=== PATIENT | female | born 1940 | race Caucasian/White ===

== ENCOUNTER 2018-05-13 07:56 | Outpatient (CLI) | payer MEDICARE ==
[~2018-05-13] VITALS: Ht 162.6 cm; Wt 129.1 kg
--- NOTE | ~2018-05-13 | OP ---
PATIENT NAME: EDILBERTO TROTTER MEDICAL RECORD: [id number] :40 LOCATION:D.CAT ADMISSION DATE: SURGEON: MANJINDER CARRION MD DATE OF OPERATION: 05/13/2018 PROCEDURES: 1. PTCA stent LAD diagonal. 2. Left heart catheterization. 3. Selective coronary angiography. 4. Left ventriculogram. INDICATION: Chest pain compatible with angina and coronary artery disease. PROCEDURE PERFORMED: After informed consent was obtained and after detailed description of risks and benefits as well as alternative therapies, the patient elected to proceed with angiogram and angioplasty. The right femoral area was prepped and draped in normal sterile fashion. Right femoral artery was cannulated via modified Seldinger technique with placement of 6-Burkinan sheath. All catheters exchanged through this sheath. FINDINGS: The left ventriculogram was performed in standard 30-degree GUILLEN view, reveals good cardiac wall motion throughout all segments. Overall ejection fraction estimated 60%. SELECTIVE CORONARY ANGIOGRAPHY: 1. Left main showed no significant angiographic disease. 2. Left anterior descending has no significant disease; however, the diagonal has 95% stenosis proximally. 3. The left circumflex has mild irregularities, but no flow-limiting stenosis. 4. Right coronary has mild irregularities, but no flow-limiting stenosis. PTCA STENT OF THE LAD: The stent used was a 2.0 x 9 mm Unity. Result was 0% residual stenosis. OVERALL IMPRESSION: Successful PTCA stent of the LAD diagonal going from 95% initial stenosis to 0% residual. TRANSINT:[id number] Voice Confirmation ID: [id number] DOCUMENT ID: [id number] MANJINDER CARRION MD at 1913 CC: [id number] DICTATION DATE: 05/13/18 1035 [employer]ROLL AND BENEFITS ASSISTANT: 05/13/18 1058 DEP CLI 05/13/18 [facility] [address] [place] [address]
--- NOTE | ~2018-05-13 | HEMODYNAMI ---
PATIENT:EDILBERTO TROTTER MEDICAL RECORD: [id number] : 40 LOCATION:DFabianCAT ADMISSION DATE: 05/13/18 Generatedon:05/13/201810:39 Patient name: EDILBERTO TROTTER Patient #: [id number] SSN: D OB: 1940 Date of study: 05/13/2018 Page: Of Hemodynamic Procedure Report Patient Data Patient Demographics Procedure consent was obtained First Name: EDILBERTO Gender: Female Last Name: ROSE MARIE : 1940 Patient #: [id number] Age: 77 year(s) Race: Unknown Additional ID: [id number] Contact details [address]: [address] [place] [address] State: [place] City: [place] Zip code: [address] Admission Admission Data Admission Date: 05/13/2018 Admission Time: 7:56 Height (in.): 64 BSA: 2.29 (m2) Height (cm.): 162.56 BMI: 49.61 (kg/m2) Weight (lbs.): 289 Weight (kg.): 131.09 Procedure Procedure Types Cath Procedure Diagnostic Procedure C [facility] w/Coronaries PCI Procedure Coronary Stent Coronary Stent Initial Procedure Description Procedure Date Procedure Date: 05/13/2018 Procedure Start Time: 10:22 Procedure End Time: 10:35 Procedure Staff Name Function Rodríguez Dolan MD Performing Physician Chanel Ahumada RT Scrub Colby Grewal RN Nurse Stacy Che RT Monitor Procedure Data Cath Procedure Fluoroscopy Diagnostic fluoroscopy Total fluoroscopy Time: 2 time: 2 min min Diagnostic fluoroscopy Total fluoroscopy dose: 581 dose: 581 mGy mGy Contrast Material Contrast Material Type Amount (ml) Isovue 300 64 Entry Location Entry Primary Successful Side Size Upsize Upsize Entry Closure Succes sful Closure Location (Fr) 1 (Fr) 2 (Fr) Remarks Device Remarks Femoral Right 5 Fr 6 Fr Exoseal artery Short Estimated blood loss: 10 ml Diagnostic catheters Device Type Used For End Catheter Placement MULTIPACK Pigtail 5 Fr Procedure catheter MULTIPACK JL 4.0 5Fr Procedure catheter MULTIPACK 3DRC 5Fr Procedure catheter Procedure Complications No complications Procedure Medications Medication Administration Route Dosage 0.9% NaCl I.V. 100 ml/hr Oxygen etCO2 Nasal cannula 2 l/min Heparin Flush Bag added to field 2 bags (1000units/500ml NS) Lidocaine 2% added to field 20 Versed I.V. 2 mg Fentanyl I.V. 100 mcg Heparin Bolus I.V. 4000 units Integrilin (Bolus I.V. 11.3 ml 2mg/ml) Integrilin (Bolus wasted 8.7 ml 2mg/ml) Plavix P.O. 600 mg Hemodynamics Rest BSA: 2.29 (m2) O2 Consumption: Estimated: 227.62 (ml/min) O2 Consumption indexed : Estimated:99.4 (ml/min/m) Heart Rate: 93 (bpm) Snapshots Pre Cath Intra NCS Post Cath Vital Signs Time Heart Resp SPO2 etCO2 NIBP (mmHg) Rhythm Pain Sedation Rate (ipm) (%) (mmHg) Status Level (bpm) 9:54:06 87 16 92 0 166/78(109) NSR 0 (11) 10(A) , No pain 9:58:26 84 16 97 37.8 157/72(107) NSR 0 (11) 10(A) , No pain 10:02:46 81 16 94 35.5 147/72(93) NSR 0 (11) 10(A) , No pain 10:07:02 75 15 94 38.6 143/72(100) NSR 0 (11) 10(A) , No pain 10:11:18 66 13 94 21.1 147/66(95) NSR 0 (11) 10(A) , No pain 10:15:34 76 14 94 37.8 144/72(103) NSR 0 (11) 10(A) , No pain 10:19:50 77 13 93 38.5 144/67(96) NSR 0 (11) 10(A) , No pain 10:24:04 74 18 95 38.6 149/75(110) NSR 0 (11) 10(A) , No pain 10:28:22 76 14 96 40.1 163/74(116) NSR 0 (11) 9(A) , No pain 10:32:36 82 13 96 40.8 147/74(98) NSR 0 (11) 9(A) , No pain Medications Time Medication Route Dose Verified Delivered Reason Notes Effectiveness by by 10:02:29 0.9% NaCl I.V. 100 Colby Colby Per physician ml/hr Carmina Grewal RN RN 10:02:38 Oxygen etCO2 2 Colby Colby Per physician Nasal l/min Carmina Grewal cannula RN RN 10:02:50 Heparin Flush added 2 Colby Colby used for Bag to bags Carmina Grewal procedure (1000units/500ml field RN RN NS) 10:03:00 Lidocaine 2% added 20ml Colby Colby for local to vial Carmina Grewal anesthetic field RN RN 10:23:24 Versed I.V. 2 mg Colby Colby for sedation Carmina Grewal RN RN 10:23:33 Fentanyl I.V. 100 Colby Colby for sedation mcg Carmina Grewal RN RN 10:29:50 Heparin Bolus I.V. 4000 Colby Colby for units Carmina Grewal anticoagulation RN RN 10:30:04 Integrilin I.V. 11.3 Colby Colby for (Bolus 2mg/ml) ml Carmina Grewal antiplatelet RN RN therapy 10:30:19 Integrilin wasted 8.7 Colby Colby to sharp's (Bolus 2mg/ml) ml Carmina Grewal RN RN 10:33:38 Plavix P.O. 600 Colby Colby for mg Carmina Grewal antiplatelet RN RN therapy Procedure Log Time Note 9:30:30 Colby Grewal RN sent for patient. Start room use. 9:45:24 Diagnostic Cath Status : Elective 9:47:37 Time tracking: Regular hours (M-F 7:00 - 5:00) 9:47:41 Plan of Care:Hemodynamics will remain stable., Cardiac rhythm will remain stable., Comfort level will be maintained., Respiratory function will remain adequate., Patient/ family verbilizes understanding of procedure., Procedure tolerated without complication., Recovers from procedure without complications.. 9:47:46 Patient received from Pre/Post Procedure Room to CCL 2 Alert and oriented. Tansferred to table in Supine position. 9:47:47 Warm blankets applied, and olivia hugger turned on for patient comfort. 9:47:47 Correct patient and procedure confirmed by team. 9:47:48 Signed procedure consent form obtained from patient. 9:47:49 ECG and BP/O2 sat monitors applied to patient. 9:51:24 Full Disclosure recording started 9:51:27 H&P Date Dictated: 05/13/2018 Within 30 days and on chart., H&P Addendum completed by physician on day of procedure. (MUST COMPLETE FOR ALL OUTPATIENTS). 9:51:29 Pre-procedure instructions explained to patient. 9:51:30 Pre-op teaching completed and patient verbalized understanding. 9:51:30 Family in waiting room. 9:51:32 Patient NPO since Midnight. 9:51:34 Is the patient allergic to Iodine/contrast media? Yes. 9:51:34 Was the patient premedicated? Yes 9:51:37 Is patient on blood thinner?No 9:51:48 Patient diabetic? Yes. 9:51:49 If diabetic: On Metformin? Yes 9:51:52 If on Metformin: Last Dose? 05/12/2018 9:51:55 Previous problem with sedation/anesthesia? No ? 9:51:57 Snore? Yes 9:51:58 Sleep apnea? No 9:51:58 Deviated septum? No 9:51:59 Opens mouth fully? Yes 9:52:00 Sticks out tongue? Yes 9:52:02 Airway obstruction? N/A on O2 9:52:06 Dentures? No ? 9:52:33 Pre procedure: right dorsailis pedis pulse 2+ Normal; easily identifiable; not easily obliterated 9:52:35 Pre procedure: left dorsailis pedis pulse 2+ Normal; easily identifiable; not easily obliterated 9:52:38 Patient pain scale 0/10 ?. 9:52:45 IV patent on arrival in right forearm with 0.9% NaCl at KVO. 9:52:47 Lab results completed and on chart. 9:52:51 Right groin area was prepped with chlora-prep and draped in sterile fashion 9:52:52 Alarms reviewed by R. N. 9:52:52 Sharps counted by scrub and verified by R.N. 9:52:55 Vital chart was started 9:52:56 Baseline sample Acquired. 9:52:59 Rhythm: sinus rhythm 9:59:45 Baseline sample Acquired. 10:02:29 0.9% NaCl 100 ml/hr I.V. was administered by Colby Grewal RN; Per physician; 10:02:38 Oxygen 2 l/min etCO2 Nasal cannula was administered by Colby Grewal RN; Per physician; 10:02:50 Heparin Flush Bag (1000units/500ml NS) 2 bags added to field was administered by Colby Grewal RN; used for procedure; 10:03:00 Lidocaine 2% 20ml vial added to field was administered by Colby Grewal RN; for local anesthetic; 10:05:56 Zero performed for pressure channel P1 10:06:26 Patient Height : 64 inches 10:06:30 Patient Weight : 289 lbs 10:17:34 --------ALL STOP TIME OUT------ 10:17:35 Final Timeout: patient, procedure, and site verified with staff and physician. All members of the team are in agreement. 10:17:38 Right groin site verified by team. 10:17:41 Physical assessment completed. ASA score P 2 - A patient with mild systemic disease as per Rodríguez Dolan MD. 10:17:45 Sedation plan: IV Moderate Sedation Medication:Versed, Fentanyl 10:18:13 Use device set Femoral Dx 10:18:15 ACIST Syringe (00572) opened to sterile field. 10:18:15 Bag Decanter (2002) opened to sterile field. 10:18:18 ACIST Hand Control (98919) opened to sterile field. 10:18:18 ACIST Manifold (10525) opened to sterile field. 10:18:19 Tegaderm 4 x 4 (1626W) opened to sterile field. 10:18:21 Medline Cath Pack ([id number]) opened to sterile field. 10:18:21 DIAGNOSTIC WIRE .035 260cm J wire (943113) opened to sterile field. 10:18:22 DIAGNOSTIC Multipack 5Fr catheter set (GR9305) opened to sterile field. 10:18:24 SHEATH Prelude 5Fr 0.035 (SGC-5F-83-035) opened to sterile field. 10:22:36 Procedure started. 10:22:53 Local anesthetic to right femoral artery with Lidocaine 2% by Rodríguez Dolan MD.INITIAL ACCESS ONLY 10:23:17 A 5 Fr sheath was inserted into the Right Femoral artery 10:23:24 Versed 2 mg I.V. was administered by Colby Grewal RN; for sedation; 10:23:33 Fentanyl 100 mcg I.V. was administered by Colby Grewal RN; for sedation; ::43 A MULTIPACK Pigtail 5 Fr catheter was advanced over the wire and used for Procedure. 10:24:14 LV gram done using GUILLEN 10:24:17 Injector settings: Ml/sec: 10, Volume: 15, 10:24:37 EF : 60 % 10::39 Catheter removed. 10::43 A MULTIPACK JL 4.0 5Fr catheter was advanced over the wire and used for Procedure. 10:25:38 LCA angiography performed. 10:25:39 Catheter removed. 10::44 A MULTIPACK 3DRC 5Fr catheter was advanced over the wire and used for Procedure. 10:26:28 RCA angiography performed. 10:26:30 Catheter removed. 10:26:38 SHEATH 6FR [place] (XCJ191) opened to sterile field. 10:26:45 INFLATOR Merit BasixCompak (ZI5683) opened to sterile field. 10:26:49 CHOICE PT Extra Support 182cm wire ([id number]) opened to sterile field. 10:26:58 Sheath upsized to a 6 Fr Short. 10:27:11 GUIDE 6FR XBLAD 3.5 catheter (62561759) opened to sterile field. 10:27:53 6 Fr XBLAD 3.5 guide catheter was inserted over the wire 10:28:39 CHOICE ES 182 wire advanced. 10:29:14 Wire advanced across lesion. 10:29:50 Heparin Bolus 4000 units I.V. was administered by Colby Grewal RN; for anticoagulation; 10:30:04 Integrilin (Bolus 2mg/ml) 11.3 ml I.V. was administered by Colby Grewal RN; for antiplatelet therapy; 10:30:19 Integrilin (Bolus 2mg/ml) 8.7 ml wasted was administered by Colby Grewal RN; to sharp's; 10:30:34 Place stent Inflation Number: 1 A REBECCA RX 2.0 x 8 stent ([id number]) was prepped and advanced across the 1st Diag. The stent was deployed at 17 YAZMIN for 0:10 (min:sec). 10:30:49 Stent catheter was removed intact over wire. 10:30:50 Wire removed. 10:30:50 Guide catheter removed. 10:31:03 EXOSEAL 6Fr (EX600) opened to sterile field. 10:31:16 Sheath removed intact; hemostasis achieved with Exoseal to the Right Femoral artery. 10:31:47 Procedure ended.(Physican Out) 10:32:31 Fluoroscopy time 02.00 minutes. 10:32:36 Fluoroscopy dose: 581 mGy 10:32:36 Flurop Dose total: 581 10:32:39 Contrast amount:Isovue 300 64ml. 10:32:49 Post-op/insertion site Right Femoral artery dressed using a 4 x 4 and Tegaderm. 10:32:53 Post right femoral artery:stable, soft, clean and dry 10:32:56 Post-procedure physical assessment completed. ASA score P 2 - A patient with mild systemic disease as per Rodríguez Dolan MD. 10:32:58 Post procedure rhythm: sinus rhythm 10:33:00 Estimated blood loss: 10 ml 10:33:01 Post procedure instruction explained to patient.Patient verbalizes understanding. 10:33:01 Patient needs reinforcement of post procedure teaching. 10:33:25 Procedure type changed to Cath procedure, Diagnostic procedure, LHC, LHC w/Coronaries, PCI procedure, Coronary Stent, Coronary Stent Initial 10:33:38 Plavix 600 mg P.O. was administered by Colby Grewal RN; for antiplatelet therapy; 10:34:53 Procedure and supply charges have been captured, reviewed, submitted and are correct. 10:34:55 Procedure Complication : No complications 10:34:56 Vital chart was stopped 10:34:57 See physician's report for complete and final results. 10:34:58 Report given to Pre/Post Procedure Room. 10:35:00 Patient transfered to Pre/Post Procedure Room with Bed. 10:35:02 Procedure ended. 10:35:02 Full Disclosure recording stopped 10:35:06 End room use (Document Last) Intervention Summary Intervention Notes Time ActionType Lesion and Equipment Used Action# Pressure Duration Attributes 10:30:34 Place stent 1st Diag REBECCA RX 2.0 x 1 17 00:10 8 stent ([id number]) Device Usage Item Name Manufacture Quantity Catalog Number Hospital Part Current Minimal Lot# / Charge Number Stock Stock Serial# Code ACIST Syringe Acist 1 77965 320383 458853 130819 20 (17779) [employer] Bag Decanter Microtek 1 2001S 487490 28555 803040 5 (2001S) Medical Inc. ACIST Hand Acist 1 32754 032611 415286 289357 5 Control (35987) [employer] Inc ACIST Manifold Acist 1 32903 161178 972332 752528 5 (96912) Medical Systems Inc Tegaderm 4 x 4 3M 1 1626W 256665 192252 870476 5 (1626W) Medline Cath Medline 1 [id number] 737318 85644 916024 5 Pack ([id number]) DIAGNOSTIC WIRE St Hector 1 687900 150008 494475 283021 30 .035 260cm J wire (029919) DIAGNOSTIC Cardinal 1 KN7209 238251 00125 016781 30 Multipack 5Fr Health catheter set ([id number]) SHEATH Prelude Merit 1 MTG-1X-08-035 694156 838705 739520 5 5Fr 0.035 Medical (PMM-3W-83-035) MULTIPACK Cardinal 1 300906 5 Pigtail 5 Fr Health catheter MULTIPACK JL Cardinal 1 360500 5 4.0 5Fr Health catheter MULTIPACK 3DRC Cardinal 1 420596 5 5Fr catheter Health SHEATH 6FR Terumo 1 JOK760 352613 215519 841071 40 [place] (ZHW272) INFLATOR Merit Merit 1 KR9082 925409 340016 379857 15 BasSoundOutC[facility] HospitalGood Thing Medical (UD2229) CHOICE PT Extra [place] 1 [id number] 016770 342554 790080 5 Support 182cm Scientific wire ([id number]) GUIDE 6FR XBLAD Cardinal 1 [id number] 673697 351020 356477 10 3.5 catheter Health (87046718) REBECCA RX 2.0 x 8 Medtronic 1 [id number] 883152 5352096 864217 5 [id number] stent ([id number]) EXOSEAL 6Fr Cardinal 1 EX600 750858 085861 871435 10 (EX600) Health Signature Audit [place] Stage Time Signature Unsigned Intra-Procedure 05/13/2018 Stacy Che 10:39:09 AM RT(R) Signatures Monitor : Stacy Che Signature : RT Date : Time : [address] [place] [address]
[~2018-05-13 07:56] MED LIST: LORTAB 5/500 TA1 TA2 PO; MOTRIN600 MG PO; OXYGEN
[2018-05-13] MEDS ORDERED: BECONASE AQ25 GM NS (08:12)
[2018-05-13] MEDS ORDERED: ZYLOPRIM300 MG PO (08:12)
[2018-05-13] MEDS ORDERED: COREG6.25 MG PO (08:13)
[2018-05-13] MEDS ORDERED: LANOXIN125 MCG PO (08:13)
[2018-05-13] MEDS ORDERED: LASIX80 MG PO (08:13)
[2018-05-13] MEDS ORDERED: LANTUS SQ (08:14)
[2018-05-13] MEDS ORDERED: IBUPROFEN600 MG PO (08:14)
[2018-05-13] MEDS ORDERED: SINGULAIR10 MG PO (08:15)
[2018-05-13] MEDS ORDERED: KLOR-CON M2020 MEQ PO (08:15)
[2018-05-13] MEDS ORDERED: MULTI-DAY VITAM1 TAB PO (08:15)
[2018-05-13] MEDS ORDERED: JANUMET XR 50-1 EACH PO (08:16)
[2018-05-13 08:28] VITALS: BP 179/77; Ht 162.6 cm; Wt 129.1 kg
[2018-05-13 08:34] LABS: BASOPHILS 0.1 % (0-2); EOSINOPHILS 0.1 % (0-7); HEMATOCRIT 36.3 % (36.0-48.0); HEMOGLOBIN 11.7 g/dL (12-16); IMMATURE GRANULOCYTES 1.1 % (0-5); LYMPHOCYTES 10.7 % (15-50); MCHC 32.2 g/dL (31.0-37.0); MCV 90.1 fL (80.0-100.0); MEAN PLATELET VOLUME 9.7 fL (7.4-10.4); MONOCYTES 1.7 % (2-11); NEUTROPHILS 86.3 % (40-80); PLATELET COUNT 270 10x3/uL (130-400); RBC 4.03 10x6/uL (4.00-5.40); RDW 16.2 % (11.5-14.5); WBC 9.9 10x3/uL (4.8-10.8)
[2018-05-13 08:45] LABS: ANION GAP 13.6 mmol/L (8-16); CALCIUM 9.7 mg/dL (8.5-10.1); CARBON DIOXIDE 29.7 mmol/L (21.0-32.0); CREATININE - SERUM 1.2 mg/dL (0.6-1.3); POTASSIUM - SERUM 4.3 mmol/L (3.5-5.1)
[2018-05-13] MEDS ORDERED: PLAVIX75 MG PO (11:20)
[2018-05-13] MEDS ORDERED: BAYER CHEWABLE81 MG PO (11:21)
== END 2018-05-13 14:30 | disposition home or self-care (01) ==
LOC: D.CATH 07:56
PROVIDERS: Internal Medicine Interventional Cardiology
DX: I25.110 Atherosclerotic heart disease of native coronary artery with unstable angina pectoris (principal); R94.39 Abnormal result of other cardiovascular function study
CPT/HCPCS: 93458; C9600